=== PATIENT | male | born 1970 | race Caucasian/White ===

== ENCOUNTER 2021-03-20 09:26 | Emergency (ER) | payer OTHER, SELFPAY ==
[2021-03-20 09:27] VITALS: BP 132/84; PULSE 90; RESP 26; TEMP 37.6; O2SAT 96; BMI 29.7
--- NOTE | 2021-03-20 09:52 | RAD_ITS ---
STUDY: X-RAY CHEST REASON FOR EXAM: Male, 50 years old. COUGH TECHNIQUE: Single AP portable view of the chest. COMPARISON: None. FINDINGS: The lungs are clear and expanded. There is no demonstrated pleural abnormality. Normal size heart. Normal mediastinum and [place]. Normal visualized pulmonary arteries. Normal visualized aortic arch and descending thoracic aorta. Normal visualized thoracic spine. Normal visualized ribs, clavicles, and shoulders. There is no demonstrated abnormality of the visualized soft tissue structures of the upper abdomen. RAD/Chest 1 View (Portable) IMPRESSION: Normal x-ray examination of the chest. Electronically Signed: Murphy Grace MD at 10:54 EST Tel , Service support ,
--- NOTE | 2021-03-20 09:52 | EKG12_ITS ---
Test Reason : SYNCOPE Blood Pressure : / mmHG Vent. Rate : 092 BPM Atrial Rate : 092 BPM P-R Int : 170 ms QRS Dur : 142 ms QT Int : 376 ms P-R-T Axes : 043 064 009 degrees QTc Int : 464 ms Normal sinus rhythm Right bundle branch block Abnormal ECG Confirmed by OPHELIA LANDERS, CHERRIE ([id number]), make up editor KULWINDER JERONIMO ([id number]) on 03/23/2021 10:26:34 AM Referred By: PATI Confirmed By:CHERRIE JACINTO MD
[2021-03-20 10:07] LABS: Absolute Lymphocyte Count 0.64 X10^3/uL (0.83-4.51); Absolute Neutrophil Count 6.3 X10^3/uL (2.0-7.7); Basophil# 0.01 X10^3/uL; Basophil% 0.1 % (0-1); Eosinophil# 0.04 X10^3/uL; Eosinophils% 0.5 % (0-5); Hematocrit 48.3 % (40-54); Lymphocyte # 0.64 X10^3/ul (0.83-4.51); Lymphocyte % 8.2 % (19-41); Mean Corp Hgb Conc 33.1 g/dL (32-36); Mean Corpuscular Hgb 29.4 pg (27.0-32.0); Mean Corpuscular Volume 88.8 fL (80-94); Mean Platelet Vol. 8.8 fl (6.2-12.0); Monocyte% 10.2 % (0-10); NRBC Flagged by Analyzer 0 % (0-5); Neutrophil # 6.32 X10^3/uL (2.7-7.7); Neutrophil % 80.5 % (47-70); POSITIVE MORPHOLOGY YES; Platelet Count 190 K/mm3 (150-450); RBC Distribution Width CV 13.1 % (11.6-14.6); RBC Distribution Width SD 42.6 fl (35.1-43.9); Red Blood Count 5.44 M/mm3 (4.6-6.2); White Blood Count 7.9 K/mm3 (4.4-11.0)
[2021-03-20 10:09] LABS: Differential Indicated SCAN CRITERIA MET
[2021-03-20 10:13] LABS: Anion Gap 7 (5-15); BUN 14 mg/dL (7-18); BUN/Creat Ratio 11.2 RATIO (10-20); Calcium,Total 8.7 mg/dL (8.5-10.1); Chloride 103 mmol/L (98-107); Creatinine, Serum 1.25 mg/dL (0.70-1.30); EST Glomerular Filtration Rate 65 mL/min (>60); Est Glom Filt Rate - Afr Amer 78 mL/min (>60); Estimated Creatinine Clearance 63.09 ml/min; Glucose 126 mg/dL (74-106); Potassium 4.2 mmol/L (3.5-5.1); Sodium Level 135 mmol/L (136-145)
--- NOTE | 2021-03-20 10:16 | EX.ED.DYSGE1 ---
HPI History of Present Illness Chief Complaint: Syncope Informant: patient Onset/Context/Timing Onset: Hours (1) Context: Sudden Onset Timing: Intermittent and Lasts (Approximately 2 minutes) Quality: Sweaty Location: Generalized Worsened by: Nothing Relieved by: Nothing Narrative Narrative: Patient presents with a syncopal episode that occurred this morning. Patient states he had a recent positive COVID-19 test that he took at home. Patient states that he got up to go to the bathroom this morning and when he was walking back he felt like he was going to pass out. Patient states he laid down on the floor and passed out. states patient was out for approximately 2 minutes. She states this is longer than his previous syncopal episodes. Patient admits to a recent cough and sore throat. Patient denies any chest pain palpitations. Patient states he did break into a sweat prior to passing out. [facility] Medical History (Updated 03/20/21 @ 11:[address] Mike Rodney DO) GERD (gastroesophageal reflux disease) Hernia Home Medications pantoprazole 40 mg PO DAILY 03/20/21 [History Last Taken Unknown] Allergy/AdvReac Type Severity Reaction Status Date / Time codeine AdvReac Other Verified 03/20/21 09:33 Surgical History (Updated 03/20/21 @ 10:[address] Mike Rodney DO) History of esophageal surgery Hx of umbilical hernia repair Social History Smoking Status: Never smoker ROS ROS ED Constitutional Constitutional ED: Denies chills or fever(s) Eyes Eyes: Denies blurry vision or change in vision ENT ENT ED: Reports sore throat; Denies rhinorrhea Cardiovascular Cardiovascular: Denies chest pain or palpitations Respiratory/Chest Respiratory/Chest: Reports cough; Denies dyspnea Gastrointestinal Gastrointestinal: Denies nausea or vomiting Genitourinary Genitourinary ED: Denies dysuria or hematuria Musculoskeletal Musculoskeletal: Denies back pain or neck pain Integumentary Denies abscess or rash Neurologic Neurologic: Reports headache(s); Denies weakness Allergic/Immunologic Allergic/Immunologic ED: Denies mouth swelling or urticaria EXAM Physical Exam Const Vital Signs: 03/20/21 09:27 03/20/21 09:34 Temperature 99.6 F H Temperature Source Temporal Pulse Rate 90 Respiratory Rate 26 H Respiratory Effort Normal Non-Labored Respiratory Pattern Normal Blood Pressure 132/84 H Blood Pressure Mean 100 Pulse Ox 96 Oxygen Delivery Method Room Air Positive well nourished and well developed General Appearance ED: well developed HEENT Reports moist mucous membranes Neck supple and no JVD Resp normal respiratory effort and clear to auscultation bilaterally Cardio regular rate, regular rhythm and no murmurs GI normal to inspection, nondistended, normoactive bowel sounds and non-tender Palpation: soft Extremity normal to inspection General Extremety ED: Negative for edema or tenderness General Extremity: Negative for edema Neuro oriented x3, CN's II-XII intact bilaterally and no sensory deficits noted Sensorium / Orientation: alert Motor Exam: strength 5/5 throughout Psych mental status grossly normal Skin no rashes or lesions noted MDM MDM MDM Narrative Medical decision making narrative: EKG was obtained. On my interpretation, it showed a normal sinus rhythm with a rate of 92. NC interval and QTc intervals were normal. There is a right bundle branch block pattern noted. [place] was normal. There are no acute ST or T wave changes. CBC and basic metabolic profile were obtained and were within normal limits. Portable 1 view chest x-ray was obtained. On my interpretation, lung pleitez are clear. There is normal cardiac silhouette. Bony thorax is normal. There is no acute process noted. Radiologist also interpreted the x-ray and agrees. COVID-19 rapid antigen was obtained and was positive. Patient is feeling better on reevaluation. Patient was instructed to continue drinking fluids. Patient was instructed to follow-up with his primary care physician in 3 to 5 days. Patient was instructed to follow-up for monoclonal antibody infusion. Patient understood and was agreeable with the plan. All questions were answered. Lab Data Attestation: I reviewed the patient's lab results. Labs: Laboratory Results - last 24 hr 03/20/21 03/20/21 09:42 09:42 WBC 7.9 RBC 5.44 Hgb 16.0 Hct 48.3 MCV 88.8 MCH 29.4 MCHC 33.1 RDW Std Deviation 42.6 RDW Coeff of Wilman 13.1 Plt Count 190 MPV 8.8 Immature Gran % (Auto) 0.500 Neut % (Auto) 80.5 H Lymph % (Auto) 8.2 L [place] % (Auto) 10.2 H Eos % (Auto) 0.5 Baso % (Auto) 0.1 Absolute Neuts (auto) 6.3 Absolute Lymphs (auto) 0.64 L Nucleated RBC % 0 Sodium 135 L Potassium 4.2 Chloride 103 Carbon Dioxide 25.0 Anion Gap 7 BUN 14 Creatinine 1.25 Estim Creat Clear Calc 63.09 Est GFR (MDRD) Af Amer 78 Est GFR (MDRD) Non-Af 65 BUN/Creatinine Ratio 11.2 Glucose 126 H Calcium 8.7 Radiography Chest X-Ray - ED: 1 View, Read by ED Physician, Read by Radiologist and Normal Diagnostic Testing: Clinical Impression(s) from Imaging Studies Chest X-Ray 03/20/21 09:52 IMPRESSION: Normal x-ray examination of the chest. Electronically Signed: Murphy Grace MD at 10:54 EST Tel , Service support , EKG Initial EKG: Attestation: I personally reviewed and interpreted this EKG as follows: Interpretation: Sinus Rhythm (92), No Acute Injury Pattern and RBBB Prior EKG tracings: not available for review Discharge Plan Triage Chief Complaint: Syncope ED Provider: Mike Rodney Dx/Rx/DC Orders Clinical Impression: Syncope and collapse Instructions: ED Fainting, Uncertain Cause Prescriptions: No Action pantoprazole 40 mg tablet,delayed release (DR/EC) 40 mg PO DAILY RF: 0 Primary Care Provider: Sonia Gonzales Referrals: Doctor,Your [STAFF PHYSICIAN] - 3-5 Days Disposition Disposition: Home, Self Care
[2021-03-20 11:29] VITALS: BP 138/74; PULSE 85; RESP 27; O2SAT 93
== END 2021-03-20 12:07 | disposition home or self-care (01) ==
LOC: ED 11:31
PROVIDERS: Emergency Provider Emergency Medicine; PCP Family Medicine; Visit Provider Emergency Medicine
DX: R55 Syncope and collapse (principal); U07.1 COVID-19; I45.10 Unspecified right bundle-branch block; K21.9 Gastro-esophageal reflux disease without esophagitis; Z79.899 Other long term (current) drug therapy
CPT/HCPCS: 71045; 80048; 85025; 87426; 93005; 99285; A4216

== ENCOUNTER 2023-11-25 22:23 | Observation (INO) | payer OTHER, SELFPAY ==
[2023-11-25 22:24] VITALS: BP 173/94; PULSE 96; RESP 15; TEMP 36.4; O2SAT 97; BMI 29.8
--- NOTE | 2023-11-25 23:36 | CT_ITS ---
EXAM: CT ABDOMEN AND PELVIS WITH INTRAVENOUS CONTRAST CLINICAL INDICATION: ruq pain TECHNIQUE: Helically acquired images were obtained of the abdomen and pelvis with intravenous contrast. CTDIvol = ( 12.38 ) mGy, DLP = ( 801.67 ) mGycm This CT exam was performed using one or more of the following dose reduction techniques: automated exposure control, adjustment of the mA and/or kV according to patient size, and/or use of iterative reconstruction technique. CONTRAST: IV 100mL Isovue-370 COMPARISON: No relevant prior studies available. FINDINGS: LOWER THORAX: Unremarkable. Lung bases are clear. No cardiomegaly. No significant pericardial effusion. ABDOMEN: LIVER: Hepatic steatosis suggested. GALLBLADDER AND BILE DUCTS: Distended gallbladder. Cholelithiasis. No wall thickening or surrounding fluid or inflammation. No intra- or extrahepatic biliary ductal dilation. PANCREAS: Unremarkable. No focal cystic or solid mass. SPLEEN: Unremarkable. Normal size without focal cystic or solid mass. ADRENALS: Unremarkable. No nodules. KIDNEYS AND URETERS: Unremarkable. Normal renal size and position. No hydronephrosis. STOMACH AND BOWEL: Unremarkable. No stomach or bowel distention. No focal inflammatory change. PELVIS: APPENDIX: No evidence of acute appendicitis. BLADDER: Decompressed appearance of the bladder. REPRODUCTIVE: Unremarkable as visualized. No mass. ABDOMEN and PELVIS: INTRAPERITONEAL SPACE: Unremarkable. No ascites or other fluid collection. No free air. 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 No suspicious lytic or sclerotic lesions of bone. SOFT TISSUES: Small fat-containing inguinal hernias bilaterally. VASCULATURE: Unremarkable. Abdominal aorta is non-dilated. LYMPH NODES: Unremarkable. No enlarged lymph nodes. CT/Abdomen/Pelvis W IV Cont ONLY IMPRESSION: 1. Cholelithiasis and gallbladder distention without acute cholecystitis. 2. No acute or inflammatory disease or bowel obstruction. Electronically Signed: Eren Pro MD at 0:54 EDT ,
--- NOTE | 2023-11-25 23:37 | ED.VIS.GI ---
HPI HPI - GI History of Present Illness Chief Complaint: Abd Pain Narrative Narrative: 53-year-old male past medical history of remote surgery on his esophagus as an infant. He states it was not attached to the rest of his got, presents with right upper quadrant abdominal pain and nausea. He does have history of reflux. He does take Melvin Proehl daily. He states has been acting up all week since mid week of last week, over the last 5 or 6 days. Today, got worse. He has a sharp stabbing pain in the right upper quadrant. Food does not necessarily make it worse. He complains of a burning sensation in the epigastrium to right upper quadrant as well. He is mildly nauseated but has not vomited. No exacerbating or alleviating factors. He denies other intra-abdominal surgeries. [facility] Medical History Hernia GERD (gastroesophageal reflux disease) Home Medications ?Medication ?Instructions ?Recorded ?Last Taken ?Type pantoprazole 40 mg tablet,delayed 40 mg PO DAILY 03/20/21 Unknown History release Allergy/AdvReac Type Severity Reaction Status Date / Time codeine AdvReac Other Verified 11/25/23 22:26 Surgical History History of esophageal surgery Hx of umbilical hernia repair Social History Smoking Status: Never smoker ROS ROS ED ROS Narrative Constitutional: No fever, no chills. HEENT: No sore throat. No neck pain. No loss of vision. No rhinorrhea. Cardiovascular: No chest pain. No palpitations. No pedal edema. Respiratory: No cough, no shortness of breath. Abdominal: Epigastric to right upper quadrant abdominal pain. Positive nausea. No vomiting. No problems with bowel movements. Genitourinary: No dysuria. No hematuria. Musculoskeletal: No myalgias. No arthralgias. Neurologic: No headaches. No dizziness. No lightheadedness. Skin: No rash. No change in color. Psychiatric: No depression. No anxiety. EXAM Physical Exam Narrative Exam Narrative: Afebrile. Vital signs noted. Regular rate and rhythm. Lungs clear to auscultation bilaterally. Positive ventral hernia, reducible. Abdomen soft with mild tenderness to palpation in right upper quadrant. Positive Gonzalez sign. Mild tenderness in epigastrium. Neurological examination is nonfocal, nonlateralizing. Const Vital Signs: 11/25/23 22:24 11/26/23 00:23 Temperature 97.5 F L Temperature Source Temporal Pulse Rate 96 78 Respiratory Rate 15 Blood Pressure 173/94 H 172/96 H Blood Pressure Mean 120 121 Pulse Ox 97 98 Oxygen Delivery Method Room Air Room Air MDM MDM MDM Narrative Medical decision making narrative: Differential diagnosis includes but not limited to pancreatitis versus cholecystitis versus choledocholithiasis versus GERD versus peptic ulcer disease. I have low suspicion for bowel obstruction because history and physical does not support this. He was administered morphine and ondansetron and a bolus of normal saline. CBC, CMP, lipase, and CT imaging will be obtained as ultrasound is not currently available. I reviewed his laboratory work and he has slightly elevated white count of 11.1, hemoglobin normal at 16.5, platelet count normal at 252. Sodium is normal at 138, potassium 3.9, BUN of 13 and creatinine 1.07, glucose elevated 122 with a normal anion gap of 6. AST normal at 15 with ALT 28 and alk phos 82. Total bilirubin slightly elevated at 1.20. Lipase is normal at 34. Urinalysis obtained and reviewed and is negative for infection. I reviewed the radiology report of the CT of the abdomen pelvis and while there is a distended gallbladder with gallstones, there is no evidence of pericholecystic fluid. After morphine and Zofran, repeat exam was performed and the patient is still having pain and tenderness in the right upper quadrant. With concern for developing cola cystitis, I did discuss the patient with Dr. Garcia with general surgery. He will assign the patient to observation and Zosyn was started. Repeat examination shows patient declining further analgesics at this time. Ultrasound will be obtained in the morning by Dr. Garcia. Disposition is assigned observation. Patient is in stable condition. History & Record Review Discussion w/independent historian: Patient Additional record(s) reviewed:: Prior ED visit (Noncontributory to current chief complaint) Lab Data Attestation: I reviewed the patient's lab results. Labs: Laboratory Results - last 24 hr 11/25/23 11/25/23 23:40 23:45 WBC 11.1 H RBC 5.65 Hgb 16.5 Hct 49.7 MCV 88.0 MCH 29.2 MCHC 33.2 RDW Std Deviation 41.1 RDW Coeff of Wilman 12.8 Plt Count 252 MPV 8.6 Immature Gran % (Auto) 0.400 Neut % (Auto) 68.5 Lymph % (Auto) 18.6 L Daniels % (Auto) 9.9 Eos % (Auto) 1.8 Baso % (Auto) 0.8 Absolute Neuts (auto) 7.6 Absolute Lymphs (auto) 2.07 Nucleated RBC % 0 Sodium 138 Potassium 3.9 Chloride 103 Carbon Dioxide 29.0 Anion Gap 6 BUN 13 Creatinine 1.07 Estim Creat Clear Calc 80.20 Est GFR (MDRD) Af Amer 92 Est GFR (MDRD) Non-Af 76 BUN/Creatinine Ratio 12.1 Glucose 122 H Calcium 9.0 Total Bilirubin 1.20 H AST 15 ALT 28 Alkaline Phosphatase 82 Total Protein 7.5 Albumin 3.7 Globulin 3.8 Albumin/Globulin Ratio 1.0 Lipase 34 Urine Color Yellow Urine Clarity Clear Urine pH 7.0 Ur Specific [place] 1.005 Urine Protein Negative Urine Glucose (UA) Normal Urine Ketones Negative Urine Occult Blood 50 H Urine Nitrite Negative Urine Bilirubin Negative Urine Urobilinogen Normal Ur Leukocyte Esterase Negative Urine RBC 5-10 SEEN Urine WBC 0 SEEN Ur Squamous Epith Cells 0-5 SEEN Urine Bacteria 0 SEEN Urine Mucus 0 SEEN Radiography Diagnostic Testing: Clinical Impression(s) from Imaging Studies Abdomen/Pelvis CT 11/25/23 23:36 IMPRESSION: 1. Cholelithiasis and gallbladder distention without acute cholecystitis. 2. No acute or inflammatory disease or bowel obstruction. Electronically Signed: Eren Pro MD at 0:54 EDT , Management Discussion w/another healthcare provider: Economics Lecturer (Dr. Garcia, general surgery) Discharge Plan Dx/Rx/DC Orders Clinical Impression: Abdominal pain, RUQ, Cholelithiasis, Nausea Disposition Disposition: Acute Care Hospital [facility]
[2023-11-25] MEDS: 0.9% Normal Saline (1000mL) 1,000 ML 999 ML IV (23:44)
[2023-11-25] MEDS: Ondansetron 4 MG/2 ML Vial IV (23:45)
[2023-11-25] MEDS: Morphine 4 MG/ML Syringe IV (23:45)
[2023-11-25 23:48] LABS: Bacteria 0 SEEN /hpf (None Seen); Mucous, Urine 0 SEEN /hpf (<or=2+); White Blood Cells 0 SEEN /hpf (0-5)
[2023-11-25 23:49] LABS: Absolute Lymphocyte Count 2.07 X10^3/uL (0.83-4.51); Absolute Neutrophil Count 7.6 X10^3/uL (2.0-7.7); Basophil# 0.09 X10^3/uL; Basophil% 0.8 % (0-1); Eosinophils% 1.8 % (0-5); Hematocrit 49.7 % (40-54); Hemoglobin 16.5 g/dL (13.0-16.5); Lymphocyte # 2.07 X10^3/ul (0.83-4.51); Lymphocyte % 18.6 % (19-41); Mean Corp Hgb Conc 33.2 g/dL (32-36); Mean Corpuscular Hgb 29.2 pg (27.0-32.0); Mean Platelet Vol. 8.6 fl (6.2-12.0); Monocyte% 9.9 % (0-10); NRBC Flagged by Analyzer 0 % (0-5); Neutrophil # 7.64 X10^3/uL (2.7-7.7); Neutrophil % 68.5 % (47-70); Platelet Count 252 K/mm3 (150-450); RBC Distribution Width CV 12.8 % (11.6-14.6); RBC Distribution Width SD 41.1 fl (35.1-43.9); Red Blood Count 5.65 M/mm3 (4.6-6.2); White Blood Count 11.1 K/mm3 (4.4-11.0)
[2023-11-25 23:51] LABS: Color, Urine Yellow (Yellow); Glucose, Dipstick Normal (Normal); Ketone-Dipstick Negative (Negative); Leukocyte Esterase-Dipstick Negative /ul (Negative); Nitrite-Dipstick Negative (Negative); Occult Blood-Urine 50 /ul (Negative); Protein-Dipstick Negative (Negative); Specific Gravity, Urine 1.005 (1.002-1.030); Urine Bilirubin Dipstick Negative (Negative); Urine Clarity Clear (Clear); Urine Urobilinogen Normal (Normal)
[2023-11-25 23:59] LABS: Red Blood Cells-Urine 5-10 SEEN /hpf (0-5); Squamous Epithelial Cells - UA 0-5 SEEN /hpf (0-5)
[2023-11-26] VITALS (19 sets, daily range): BP systolic 125–178; BP diastolic 70–96; PULSE 70–89; RESP 15–18; TEMP 36.4–37.4; O2SAT 94–100; BMI 29.9
--- NOTE | 2023-11-26 | GALL_PTH ---
PATIENT: JOSEPHINE ADAMS LOC: [id number] U#:[id number] AGE/SX: 53/M ROOM: IN313 RE11/26/[address]: Dr. Herrera Garcia MD : 1970 BED: 1 DIS: 11/27/2023 SPEC #: [id number] RECD: 11/27/23 10:23 STATUS: TERI LAURAParmjit #: [id number] MIHIR: 11/26/23 00:[address]: Herrera Garcia DEPT: SURGICAL PATHOLOGY RECD BY: Ridge Beltran ENTERED: 11/27/23 10:23 SP TYPE: JOSÉ ESPOSITO DR: Sonia Gonzales PA-C Tissues: Gallbladder, NOS Procedures: Surgery Specimen Level III HEADER OPERATION: Laparoscopic cholecystectomy PRE-OP DIAGNOSIS: Acute cholelithiasis TISSUE SUBMITTED: Gallbladder MICROSCOPIC DIAGNOSIS Gallbladder, cholecystectomy: Chronic and acute cholecystitis and cholelithiasis. AM/mr 11/28/2023 MICROSCOPIC DESCRIPTION Slides are reviewed. GROSS DESCRIPTION Received is one container labeled with the patient's name and designated gallbladder. The specimen consists of a gallbladder measuring 10.5 cm in length and up to 3.0 cm in diameter. The external surface is pink-calabrese, smooth and glistening for the most part. Focally it is granular, hemorrhagic and contains cautery artifact. The gallbladder contains small amount of hemorrhagic mucoid bile and two yellowish-brown stones ovoid to multifaced measuring in aggregate 1.5 and 3.0cm in greatest dimension. The mucosa is bile-stained and without any mass lesions. The gallbladder wall measures up to 0.3 cm in thickness. Clinic Md Associate sections from the gallbladder and the cystic duct are submitted in one cassette. / SJ: 11/27/2023 TC:2 CPT: 88641
[2023-11-26 00:12] LABS: AST(SGOT) 15 U/L (15-37); Alanine Aminotransfer ALT/SGPT 28 U/L (16-61); Albumin, Serum 3.7 g/dL (3.2-5.0); Alkaline Phosphatase 82 U/L (45-117); Anion Gap 6 (5-15); BUN 13 mg/dL (7-18); BUN/Creat Ratio 12.1 RATIO (10-20); Chloride 103 mmol/L (98-107); Creatinine, Serum 1.07 mg/dL (0.70-1.30); EST Glomerular Filtration Rate 76 mL/min (>60); Est Glom Filt Rate - Afr Amer 92 mL/min (>60); Globulin 3.8 g/dL (2.2-4.2); Glucose 122 mg/dL (74-106); Lipase 34 U/L (13-75); Potassium 3.9 mmol/L (3.5-5.1); Protein, Total 7.5 g/dL (6.4-8.2); Sodium Level 138 mmol/L (136-145)
[2023-11-26] MEDS: Piperacil/Tazobactam 3.375 GM in 0.9% Normal Saline (50mL MB+) 50 ML IV ×4 (01:54→21:46)
[2023-11-26] MEDS: 0.9% Normal Saline (1000mL) 1,000 ML 100 ML IV (02:00)
[2023-11-26] MEDS: Morphine 2 MG/ML Syringe IV (03:03)
--- NOTE | 2023-11-26 05:55 | US_ITS ---
INDICATION: RUQ pain EXAMINATION: Ultrasound US Abdomen Limited (quadrant) TECHNIQUE: Rodriges scale and color doppler imaging was performed of the right upper quadrant. COMPARISON: CT scan of the abdomen and pelvis of 11/25/2023 FINDINGS: LIVER: The liver is enlarged measuring about 21 cm in length and is echogenic in texture. The portal vein is patent with normal hepatopedal flow. No focal hepatic lesion. There is no free fluid. GALLBLADDER AND BILIARY TREE: Distended gallbladder with multiple gallstones and sludge in the gallbladder. There is mild pericholecystic fluid or gallbladder wall measuring about 7 mm. The proximal common bile duct measures 3 mm, which is within normal limits for the patient''s age. Sonographic Gonzalez''s sign: Positive. PANCREAS: No focal abnormality is demonstrated in the pancreas. No pancreatic ductal dilatation. Right kidney: The right kidney measures 10.6 cm in length. The renal cortex measures 1.8 cm. No evidence of hydronephrosis US/Gallbladder IMPRESSION: 1. Gallstones with thickening of the gallbladder wall and pericholecystic fluid concerning for acute cholecystitis. 2. Hepatomegaly and hepatic steatosis. Electronically Signed: Torsten Larkin MD at 9:42 EDT ,
[2023-11-26 06:07] LABS: Absolute Lymphocyte Count 2.33 X10^3/uL (0.83-4.51); Basophil# 0.04 X10^3/uL; Basophil% 0.4 % (0-1); Eosinophil# 0.21 X10^3/uL; Eosinophils% 2.2 % (0-5); Hematocrit 45.4 % (40-54); Hemoglobin 15.1 g/dL (13.0-16.5); Lymphocyte # 2.33 X10^3/ul (0.83-4.51); Lymphocyte % 24.3 % (19-41); Mean Corp Hgb Conc 33.3 g/dL (32-36); Mean Corpuscular Hgb 29.3 pg (27.0-32.0); Mean Platelet Vol. 8.8 fl (6.2-12.0); Monocyte# 0.99 X10^3/uL; Monocyte% 10.3 % (0-10); NRBC Flagged by Analyzer 0 % (0-5); Neutrophil # 5.98 X10^3/uL (2.7-7.7); Neutrophil % 62.4 % (47-70); Platelet Count 222 K/mm3 (150-450); RBC Distribution Width CV 12.8 % (11.6-14.6); RBC Distribution Width SD 41.4 fl (35.1-43.9); Red Blood Count 5.16 M/mm3 (4.6-6.2); White Blood Count 9.6 K/mm3 (4.4-11.0)
[2023-11-26 06:56] LABS: AST(SGOT) 11 U/L (15-37); Alanine Aminotransfer ALT/SGPT 23 U/L (16-61); Albumin, Serum 3.1 g/dL (3.2-5.0); Alkaline Phosphatase 69 U/L (45-117); Anion Gap 7 (5-15); BUN 11 mg/dL (7-18); BUN/Creat Ratio 10.9 RATIO (10-20); Calcium,Total 8.5 mg/dL (8.5-10.1); Chloride 106 mmol/L (98-107); Creatinine, Serum 1.01 mg/dL (0.70-1.30); EST Glomerular Filtration Rate 82 mL/min (>60); Est Glom Filt Rate - Afr Amer 99 mL/min (>60); Estimated Creatinine Clearance 85.15 ml/min; Globulin 3.2 g/dL (2.2-4.2); Glucose 104 mg/dL (74-106); Potassium 3.7 mmol/L (3.5-5.1); Protein, Total 6.3 g/dL (6.4-8.2); Sodium Level 140 mmol/L (136-145)
--- NOTE | 2023-11-26 08:56 | PCM.HP.STD ---
HPI - General General Date of Admission: 11/26/23 HPI Narrative JOSEPHINE ADAMS, is a 53 M who presents with abdominal pain. The patient reports pain in the right upper quadrant that started a few days ago and he thought it was reflux and it went away and he said last night it started and did not go away. He denies vomiting or fevers or chills. [facility] Medical History Hernia GERD (gastroesophageal reflux disease) Home Medications ?Medication ?Instructions ?Recorded ?Last Taken ?Type pantoprazole 40 mg tablet,delayed 40 mg PO DAILY 03/20/21 Unknown History release Allergy/AdvReac Type Severity Reaction Status Date / Time codeine AdvReac Other Verified 11/25/23 22:26 Surgical History History of esophageal surgery Hx of umbilical hernia repair Social History Smoking Status: Never smoker ROS Constitutional Constitutional: Denies anorexia, chills, fatigue or fever(s) Eyes Eyes: Denies blurry vision ENT HEENT: Denies abnormal hearing Respiratory/Chest Respiratory/Chest: Denies cough or dyspnea Gastrointestinal Gastrointestinal: Reports abdominal pain and nausea; Denies diarrhea, dysphagia or vomiting Genitourinary Genitourinary: Denies change in urinary stream Musculoskeletal Musculoskeletal: Denies abnormal gait Integumentary Integumentary: Denies jaundice or new lesions Neurologic Neurologic: Denies abnormal gait Psychiatric Psychiatric: Denies anxiety Endocrine Endocrinology: Denies flushing Hematologic/Lymphatic Hematologic/Lymphatic: Denies easy bleeding Vital Signs Vital Signs Vital Signs: 11/25/23 22:24 11/26/23 00:23 11/26/23 01:50 Temperature 97.5 F L 97.5 F L Temperature Source Temporal Pulse Rate 96 78 75 Respiratory Rate 15 18 Respiratory Effort Respiratory Depth Respiratory Pattern Blood Pressure 173/94 H 172/96 H 147/75 H Blood Pressure Mean 120 121 99 Blood Pressure Source Blood Pressure Position Blood Pressure Location Pulse Ox 97 98 98 Oxygen Delivery Method Room Air Room Air 11/26/23 01:52 11/26/23 02:32 11/26/23 02:54 Temperature 98.4 F 98.5 F Temperature Source Oral Oral Pulse Rate 70 74 Respiratory Rate 16 15 15 Respiratory Effort Normal Non-Labored Respiratory Depth Normal Respiratory Pattern Normal Blood Pressure 147/75 H 178/93 H Blood Pressure Mean 99 121 Blood Pressure Source Monitor Blood Pressure Position Semi-Fowlers Blood Pressure Location Right Arm Pulse Ox 97 100 100 Oxygen Delivery Method Room Air Room Air Room Air 11/26/23 08:00 11/26/23 08:00 Temperature 99.4 F H Temperature Source Temporal Pulse Rate 88 Respiratory Rate 18 Respiratory Effort Normal Non-Labored Respiratory Depth Normal Respiratory Pattern Normal Blood Pressure 132/80 H Blood Pressure Mean 97 Blood Pressure Source Monitor Blood Pressure Position Semi-Fowlers Blood Pressure Location Right Arm Pulse Ox 97 100 Oxygen Delivery Method Room Air Room Air Weight Weight: 185 lb 13.595 oz Body Mass Index (BMI) 29.9 Physical Exam Const oriented x3 and no apparent distress Resp normal respiratory effort GI soft to palpation Palpation: tender RUQ and Gonzalez's sign Extremity normal to inspection Results Lab / Micro Data 11/26/23 05:46 11/26/23 05:46 Labs: Laboratory Results - last 24 hr 11/25/23 23:40: Urine Color Yellow, Urine Clarity Clear, Urine pH 7.0, Ur Specific [place] 1.005, Urine Protein Negative, Urine Glucose (UA) Normal, Urine Ketones Negative, Urine Occult Blood 50 H, Urine Nitrite Negative, Urine Bilirubin Negative, Urine Urobilinogen Normal, Ur Leukocyte Esterase Negative, Urine RBC 5-10 SEEN, Urine WBC 0 SEEN, Ur Squamous Epith Cells 0-5 SEEN, Urine Bacteria 0 SEEN, Urine Mucus 0 SEEN 11/25/23 23:45: WBC 11.1 H, RBC 5.65, Hgb 16.5, Hct 49.7, MCV 88.0, MCH 29.2, MCHC 33.2, RDW Std Deviation 41.1, RDW Coeff of Wilman 12.8, Plt Count 252, MPV 8.6, Immature Gran % (Auto) 0.400, Neut % (Auto) 68.5, Lymph % (Auto) 18.6 L, [place] % (Auto) 9.9, Eos % (Auto) 1.8, Baso % (Auto) 0.8, Absolute Neuts (auto) 7.6, Absolute Lymphs (auto) 2.07, Nucleated RBC % 0, Sodium 138, Potassium 3.9, Chloride 103, Carbon Dioxide 29.0, Anion Gap 6, BUN 13, Creatinine 1.07, Estim Creat Clear Calc 80.20, Est GFR (MDRD) Af Amer 92, Est GFR (MDRD) Non-Af 76, BUN/Creatinine Ratio 12.1, Glucose 122 H, Calcium 9.0, Total Bilirubin 1.20 H, AST 15, ALT 28, Alkaline Phosphatase 82, Total Protein 7.5, Albumin 3.7, Globulin 3.8, Albumin/Globulin Ratio 1.0, Lipase 34 11/26/23 05:46: WBC 9.6, RBC 5.16, Hgb 15.1, Hct 45.4, MCV 88.0, MCH 29.3, MCHC 33.3, RDW Std Deviation 41.4, RDW Coeff of Wilman 12.8, Plt Count 222, MPV 8.8, Immature Gran % (Auto) 0.400, Neut % (Auto) 62.4, Lymph % (Auto) 24.3, [place] % (Auto) 10.3 H, Eos % (Auto) 2.2, Baso % (Auto) 0.4, Absolute Neuts (auto) 6.0, Absolute Lymphs (auto) 2.33, Nucleated RBC % 0, Sodium 140, Potassium 3.7, Chloride 106, Carbon Dioxide 27.0, Anion Gap 7, BUN 11, Creatinine 1.01, Estim Creat Clear Calc 85.15, Est GFR (MDRD) Af Amer 99, Est GFR (MDRD) Non-Af 82, BUN/Creatinine Ratio 10.9, Glucose 104, Calcium 8.5, Total Bilirubin 1.60 H, AST 11 L, ALT 23, Alkaline Phosphatase 69, Total Protein 6.3 L, Albumin 3.1 L, Globulin 3.2, Albumin/Globulin Ratio 1.0 Imaging Radiology Impression Abdomen/Pelvis CT 11/25/23 23:36 IMPRESSION: 1. Cholelithiasis and gallbladder distention without acute cholecystitis. 2. No acute or inflammatory disease or bowel obstruction. Electronically Signed: Eren Pro MD at 0:54 EDT , Assessment & Plan Assessment/Plan (1) Acute cholecystitis: PLAN: The patient has a what appears to be acute cholecystitis by history and his CT scan showed distended gallbladder with 2 large gallstones. Gallbladder ultrasound is being performed this morning as long as it supports the diagnosis of acute cholecystitis I will take him for laparoscopic cholecystectomy this afternoon. I discussed the procedure in detail with the patient. I discussed the risks, benefits, and alternatives of the procedure. I discussed the risks including but not limited to bleeding, infection, injury to surrounding organs such as the liver, bile duct, bowels. I did discuss the possibility of having to convert to an open procedure as well as the possibility that if any injuries occurred this may necessitate further surgery at a tertiary care center. Herrera Garcia MD Pager: [facility] [address] [place] [address] [address] [place] [address] Office:
--- NOTE | 2023-11-26 09:25 | EKG12_ITS ---
Test Reason : PRE OP Blood Pressure : / mmHG Vent. Rate : 080 BPM Atrial Rate : 080 BPM P-R Int : 180 ms QRS Dur : 146 ms QT Int : 378 ms P-R-T Axes : 039 035 022 degrees QTc Int : 435 ms Normal sinus rhythm Right bundle branch block Abnormal ECG When compared with ECG of 20-MAR-2021 10:06, No significant change was found Confirmed by AILYN LANDERS, CHRISTIANO ([id number]), photograph editor KULWINDER JERONIMO ([id number]) on 11/27/2023 6:17:14 AM Referred By: [email or web address] Confirmed By:CHRISTIANO ROBERTSON MD
[2023-11-26] MEDS: Lactated Ringers 1,000 ML 15 ML IV ×2 (13:49→17:31)
--- NOTE | 2023-11-26 14:12 | PRE.ANES_ITS ---
ASA Classification* ASA Classification ASA Classification: 2 Assessment & Plan Anesthesia* Anesthesia Assessment Anesthesia Assessment: Discussed sedation and/or anesthesia options, risks, benefits, and alternatives with patient/parents/legal guardian/POA. Questions invited. The patient/parents/legal guardian/POA seems to understand and agrees to proceed with anesthesia plan. Reviewed the physical assessment, medical history, allergy history and patient home medications list prior to surgery/procedure/anesthetic and documented any changes. Performed airway and anesthesia risk assessments. Anesthesia Type Anesthesia Type: General Anesthesia Focused Assessment* Temperature: 99.4 F Pulse Rate: 88 Blood Pressure: 132/80 Respiratory Rate: 18 Pulse Ox: 100 Airway Assessment Mouth opens: >3 cm Mallampati Score: II Focused Labs Anesthesia Preop lab: CBC WBC 9.6 K/mm3 (4.4-11.0) 11/26/23 05:46 RBC 5.16 M/mm3 (4.6-6.2) 11/26/23 05:46 Hgb 15.1 g/dL (13.0-16.5) 11/26/23 05:46 Hct 45.4 % (40-54) 11/26/23 05:46 Plt Count 222 K/mm3 (150-450) 11/26/23 05:46 CHEMISTRY Potassium 3.7 mmol/L (3.5-5.1) 11/26/23 05:46 Sodium 140 mmol/L (136-145) 11/26/23 05:46 BUN 11 mg/dL (7-18) 11/26/23 05:46 Creatinine 1.01 mg/dL (0.70-1.30) 11/26/23 05:46 Glucose 104 mg/dL (74-106) 11/26/23 05:46 COAG Pre-Assessment Diagnosis/Proposed Procedure Planned Operative Procedure(s): laproscopic choly Anesthesia History Anesthesia History - sap director: Anesthesia History - sap director Hx Hospitalization Any Problems With Anesthesia No 11/26/23 03:52 Cholinesterase deficiency No 11/26/23 03:52 You/Your Family Experience No 11/26/23 03:52 fever (hyperthermia) with Relationship Recent Exposure to Contagious No 11/26/23 03:52 Disease Does patient have nerve No 11/26/23 03:52 stimulator Patient instructed to have No 11/26/23 03:52 device shut off --Does patient have Pacemaker or ICD? When Was Last Pacemaker Check QUESTION #4 FULL TEXT: You/Your Family Experience fever (hyperthermia) with Anesthesia Last Oral Intake Last Oral intake: Last Oral Intake NPO since Meds taken in AM with sips of water? Meds patient instructed to take am of surgery PONV PONV - sap director: PONV - sap director Female HX of Motion Sickness HX of N/V After Surgery Non-Smoker Duration of Surgery greater than 60 minutes Number of Risk Factors PONV Score Height & Weight Height & Weight: Anesthesia: Height & Weight Height 5 ft 6 in 11/26/23 02:32 Weight: 84.3 kg 11/26/23 02:32 Body Mass Index (BMI) 29.9 11/26/23 02:32 Respiratory Assessment Respiratory Assessment - sap director: Respiratory Tract Infection Hx - sap director Hx Respiratory Tract Infection No 11/26/23 03:52 STOP Sleep Apnea STOP Sleep Apnea - sap director: STOP Sleep Apnea - sap director Hx Hypertension No 11/26/23 02:32 Hx Sleep Apnea No 11/26/23 02:32 CPAP BIPAP Do you snore loudly (louder No 11/26/23 02:32 than talking or can be heard Do you often feel tired/ No 11/26/23 02:32 fatigued/ sleepy during daytime? Has anyone observed you stop No 11/26/23 02:32 breathing during sleep? STOP Results Negative 11/26/23 02:32 QUESTION #5 FULL TEXT : Do you snore loudly (louder than talking or can be heard through closed doors)? 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 Specify any problems Hx of Preganancy in last 3 N/A 11/26/23 02:32 Months Nurse Filling Out Transfusion LSHRINER 11/26/23 02:32 & Questions: Date: 11/26/23 11/26/23 02:32 Time: 02:38 11/26/23 02:32 Patient unable to answer at this time (ie. confused, unrespo /Reproduction History /Reproductive History - sap director: /Reproductive Hx- sap director Hx Now Gestational Age (in weeks): EDC: Hx Hx Para Hx Section SAB Active Medications Active Medications: Current Medications Generic Name Dose Route Start Last Admin Trade Name Freq PRN Reason Stop Dose Admin Acetaminophen 650 mg 11/26/23 01:57 Acetaminophen 325 Mg Tablet PO Q4H PRN PRN Pain 1-10 or Fever Piperacillin Sod/Tazobactam 50 mls @ 12.5 mls/hr 11/26/23 06:30 11/26/23 11:53 Sod 3.375 gm/ Sodium Chloride IV Infused Q8 BETSY Infusion Lactated Ringer's 1,000 mls @ 15 mls/hr 11/26/23 13:45 11/26/23 13:49 IV 15 mls/hr .Q48H BETSY Administration Morphine Sulfate 2 - 4 mg 11/26/23 01:57 11/26/23 03:03 Morphine 2 Mg/Ml Syringe IV 4 mg Q2H PRN PRN Administration Pain Score 4-10 Morphine Sulfate 2 - 4 mg 11/26/23 02:09 Morphine 4 Mg/Ml Syringe IV Q2H PRN PRN Pain Score 4-10 Ondansetron HCl 4 mg 11/26/23 01:57 Ondansetron 4 Mg/2 Ml Vial IV Q6H PRN PRN NAUSEA/VOMITING Pantoprazole Sodium 40 mg 11/26/23 10:00 11/26/23 08:03 Pantoprazole Sodium 40 Mg Tablet PO Not Given DAILY BETSY Sodium Chloride 10 - 40 ml 11/26/23 01:57 0.9% Saline Lock 10 Ml Syringe IV UD PRN SALINE FLUSH Sodium Chloride 10 - 40 ml 11/26/23 01:57 0.9% Saline Lock 10 Ml Syringe IV UD PRN SALINE FLUSH Sodium Chloride 10 - 40 ml 11/26/23 03:23 0.9% Saline Lock 10 Ml Syringe IV UD PRN SALINE FLUSH PFSH Medical History Hernia GERD (gastroesophageal reflux disease) Home Medications ?Medication ?Instructions ?Recorded ?Last Taken ?Type pantoprazole 40 mg tablet,delayed 40 mg PO DAILY 03/20/21 Unknown History release Allergy/AdvReac Type Severity Reaction Status Date / Time codeine AdvReac Other Verified 11/25/23 22:26 Surgical History History of esophageal surgery Hx of umbilical hernia repair Social History Smoking Status: Never smoker Review of Systems (Anesthesia) ROS Narrative System reviewed and no additional complaints, except as documented.
--- NOTE | 2023-11-26 15:15 | RAD_ITS ---
INDICATION: MANJINDER EXAMINATION/TECHNIQUE: Images assigned to this order were provided in conjunction with a surgical procedure performed in the operating room/procedural suite. Please see operative report for details. Fluoroscopic images: 85 images of a single cine run Fluoroscopic time: 13 2nd Cumulative dose: NA, mGym2; 5.44; mGy COMPARISON: No relevant comparisons available.. FINDINGS: There is significant contrast in the RIGHT quadrant without clear visualization of the intrahepatic or extrahepatic ductal system. RAD/Cholangiogram/ O R,Initial IMPRESSION: 1. Staining of contrast in the RIGHT upper quadrant in the surgical field without clear demonstration of the intrahepatic or extrahepatic biliary tree. Electronically Signed: Murphy Bush MD at 1:06 EDT ,
[2023-11-26] MEDS: Bupiv/Epi 0.25% 30 ML Vial (15:45)
--- NOTE | 2023-11-26 15:46 | OP.PCM_ITS ---
Report of Operation Date of Procedure: 11/26/23 Pre-Operative Diagnosis: Acute cholecystitis Post-Operative Diagnosis: Acute cholecystitis Surgery/Procedure Performed:: Laparoscopic cholecystectomy Specimen's removed: Gallbladder Estimated Blood Loss (mL): 5 Description of Procedure: After obtaining informed consent patient was brought back to the operating room. General anesthesia was induced. The abdomen was prepped and draped in usual sterile fashion. A small midline incision was made superior to the umbilicus and deepened to the level of fascia. The fascia was elevated and incised. Next the peritoneum was elevated and incised in the same fashion. Finger sweep was performed and the Clemente trocar was placed into the abdomen. The balloon was inflated. The abdomen was inflated to 15 mmHg. Next a camera was introduced into the abdomen and the abdomen was inspected. Next under direct visualization three 5-mm ports were placed one subxiphoid and 2 subcostal. Next the gallb ladder was elevated and retracted toward the right shoulder. The peritoneum was stripped from the gallbladder. The infundibulum was located and retracted laterally. Next the triangle of Calot was dissected and the cystic duct and cystic artery were identified. Cholangiograms were attempted. I was unable to get any of the contrast to flow into the common duct and I had a good view of safety. I believe there may be a small stone lodged in the distal cystic duct precluding cholangiograms. Three hemolock clips were placed across the cystic duct. The cystic duct was then divided leaving 2 clips on the stump. The cystic artery was clipped and divided in the same fashion. The hook cautery was then used to take the gallbladder off of the gallbladder bed. Hemostasis was obtained. Gallbladder fossa was irrigated and no active bleeding or bile leakage was noted. Next the camera was introduced in the subxiphoid port. An Endopouch bag was placed through the umbilical port and the gallbladder was placed into it. The gallbladder was then removed through the umbilical incision. The camera was then reinserted through the umbilical port. The gallbladder fossa was inspected once more and noted to be hemostatic with no leaking bile. The abdomen was suctioned dry. The 5 mm ports were removed under direct visualization. The umbilical port was then removed and the air was removed from the abdomen. Next using an 0 Vicryl suture the umbilical fascia was closed in a [id number] fashion. The umbilical port site was irrigated local anesthetic was administered to all the incisions. All the incisions were closed with interrupted subcuticular 4-0 Monocryl sutures followed by Steri- Strips and dressings. The patient was awoken and taken to PACU in stable condition. Admit VTE Documentation VTE Mechan Device Prophylaxis: SCD's
--- NOTE | 2023-11-26 16:08 | PCM.POST.ANE ---
Anesthesia: Postop Eval I Current Vital Signs Temperature: 98.8 F Pulse Rate: 86 Blood Pressure: 129/72 Respiratory Rate: 16 Pulse Ox: 96 Oxygen Delivery Method: Room Air Assessment Airway patent: Yes Spontaneous unlabored respirations: Yes Mental status: Asleep nausea: No Vomiting: No Anesthesia Complication: No Fluid Hydration Crystalloid volume administer (ml): 900 Total IV fluid infused: 900 Progress Note Anesthesia document: Postop Eval 1 completed: Yes
--- NOTE | 2023-11-26 17:16 | PCM.POSTANE2 ---
Anesthesia Postop Eval I Sum Postop Eval Completion status Anesthesia document: Postop Eval 1 completed: Yes Anesthesia Postop Eval I Summary Anesthesia Postop Eval I Summary: Anesthesia Postop Eval I: Assessment Summary Airway patent Yes 11/26/23 16:08 [email or web address] Spontaneous unlabored Yes 11/26/23 16:08 [email or web address] respirations Mental status Asleep 11/26/23 16:08 [email or web address] nausea No 11/26/23 16:08 [email or web address] Vomiting No 11/26/23 16:08 [email or web address] Anesthesia Postop Eval I: Fluid Summary Crystalloid volume administer 900 11/26/23 16:08 [email or web address] (ml) Colloids volume administered ( ml) Blood Product volume administered (ml) Total IV fluid infused 900 11/26/23 16:08 [email or web address] Anesthesia Postop Eval I: Summary Notes Anesthesia Complication No 11/26/23 16:08 [email or web address] Anesthesia Complication Comment: Post-operative progress note Anesthesia: Postop Eval II Evaluation Mental status: Awake and Calm Pain Level: 1 nausea: No Vomiting: No
[2023-11-27 02:00] VITALS: BP 149/75; PULSE 88; RESP 18; TEMP 37.1; O2SAT 96
[2023-11-27] MEDS: Acetaminophen 325 MG Tablet 650 MG PO ×2 (02:18→05:48)
[2023-11-27] MEDS: Piperacil/Tazobactam 3.375 GM in 0.9% Normal Saline (50mL MB+) 50 ML IV (05:47)
[2023-11-27 07:22] LABS: Absolute Neutrophil Count 14.2 X10^3/uL (2.0-7.7); Basophil# 0.03 X10^3/uL; Basophil% 0.2 % (0-1); Hematocrit 45.9 % (40-54); Hemoglobin 15.2 g/dL (13.0-16.5); Lymphocyte % 6.7 % (19-41); Mean Corp Hgb Conc 33.1 g/dL (32-36); Mean Corpuscular Hgb 29.1 pg (27.0-32.0); Mean Corpuscular Volume 87.9 fL (80-94); Monocyte% 6.7 % (0-10); NRBC Flagged by Analyzer 0 % (0-5); Neutrophil # 14.22 X10^3/uL (2.7-7.7); Platelet Count 252 K/mm3 (150-450); RBC Distribution Width CV 12.7 % (11.6-14.6); RBC Distribution Width SD 41.2 fl (35.1-43.9); Red Blood Count 5.22 M/mm3 (4.6-6.2); White Blood Count 16.5 K/mm3 (4.4-11.0)
--- NOTE | 2023-11-27 07:34 | DS.PCM_ITS ---
Providers Date of Admission: 11/26/23 Primary Care Physician: Sonia Gonzales PA-C Reason For Visit: ACUTE CHOLECYSTITIS Diagnosis Discharge Diagnosis (1) Acute cholecystitis: Status: Acute Code(s): K81.0 - Acute cholecystitis Medications at Discharge Home Medications pantoprazole 40 mg tablet,delayed release 40 mg PO DAILY 03/20/21 acetaminophen 325 mg tablet 650 mg (2 x 325 mg) PO Q4H PRN PRN Pain 1-10 Or Fever #0 tabs 11/27/23 oxycodone 5 mg tablet 5 mg PO Q6H PRN pain 2 days #6 tabs 11/27/23 Hospital Course Operations cholecystecomy Summary of Care Provided Minutes Spent on Discharge: 30 Hospital Course: Patient is a 53 y/o M who presented with a 3 day history of worsening abdominal pain in the right upper quadrant. CT scan of the ab/pel was obtained demonstrating cholelithiasis and gallbladder distention. RUQ u/s was obtained demonstrating gallstones with thickening of the gallbladder wall and pericholecystic fluid concerning for acute cholecystitis. Patient was admitted for pain control, IV antibiotics and surgical intervention. Dr. Garcia performed a laparoscopic cholecystectomy with intraoperative cholangiogram on 11/26/23. Patient tolerated the procedure well. He had an uncomplicated hospitalization. Upon discharge, patient abdominal pain was controlled with Tylenol. He denies any nausea, vomiting, fever. Physical Exam GI GI Narrative: Abdomen- soft, nontender. Incisions c/d/i. No erythema or infection noted Weight / BMI Weight Weight: 185 lb 13.595 oz Body Mass Index (BMI) 29.9 ABG / Lab / Microbiology Data 11/27/23 06:49 11/26/23 05:46 Laboratory: Laboratory Results - last 24 hr 11/27/23 06:49: WBC 16.5 H, RBC 5.22, Hgb 15.2, Hct 45.9, MCV 87.9, MCH 29.1, MCHC 33.1, RDW Std Deviation 41.2, RDW Coeff of Wilman 12.7, Plt Count 252, MPV 9.0, Immature Gran % (Auto) 0.400, Neut % (Auto) 86.0 H, Lymph % (Auto) 6.7 L, [place] % (Auto) 6.7, Eos % (Auto) 0.0, Baso % (Auto) 0.2, Absolute Neuts (auto) 14.2 H, Absolute Lymphs (auto) 1.10, Nucleated RBC % 0 Radiography Diagnostic Testing: Radiology Impression Gallbladder Ultrasound 11/26/23 05:55 IMPRESSION: 1. Gallstones with thickening of the gallbladder wall and pericholecystic fluid concerning for acute cholecystitis. 2. Hepatomegaly and hepatic steatosis. Electronically Signed: Torsten Larkin MD at 9:42 EDT , Cholangiogram 11/26/23 15:15 IMPRESSION: 1. Staining of contrast in the RIGHT upper quadrant in the surgical field without clear demonstration of the intrahepatic or extrahepatic biliary tree. Electronically Signed: Murphy Bush MD at 1:06 EDT , D/C Instructions Discharge Diet: Light diet - advance as tolerated Discharge Activity: May Not Drive (3 days) Lifting Restrictions: No greater than 15 pounds x 2 weeks Call your doctor if your incision/area has: Continuous Slow Oozing, Sudden Increased Bleeding, Increased Pain/ Swelling, Increased Redness, Foul Smelling Discharge and Swelling at the incision site Call your doctor if you observe: Fever of 101 or Higher Suture Line Care: Avoid Pulling/Pushing and Avoid Pinching/Bending Remove Dressing in: 2 days Cleanse incision/area with: Soap & Water Additional Dressing/Incision Instructions: Remove steri-strips in 1 week Please Follow Up With: Herrera Garcia MD When: Please contact our office at [phone], option #2 to schedule a 10-14 day follow-up Meaningful Use Info Meaningful Use Meaningful Use Diagnoses (Choose all that apply): None applicable Ischemic Stroke Statin Dosing Therapy Reference: STATIN DOSE THERAPY REFERENCE: * Patients > 75 years receive moderate or high dose statin therapy. * Patients 75 years or YOUNGER should receive HIGH intensity statin dose unless contraindicated. You will be required to document reason for non-treatment if statin daily dose does not meet guidelines. HIGH DOSE STATIN THERAPY DAILY Atorvastatin > than or = to 40 mg Rosuvastatin > than or = to 20 mg Amlodipine + Atorvastatin > than or = to 2.5/40 mg Ezetimibe + Simvastatin 10/80 mg Simvastatin 80mg Discharge Plan Admission Admit Date/Time: 11/26/23 01:57 Primary Reason for Your Visit: acute cholecystitis Attending Provider: Herrera Garcia Primary Care Provider: Sonia Gonzales Instructions Additional Instructions / Restrictions: Cholecystectomy Diet ? Start light with soups and soft bland foods. You may advance diet as tolerated. Activity ? You may drive in 3 days but not while taking narcotic pain medication. ? I encourage walking. You may go up steps, one at a time. ? Do not swim or use hot tubs for 2 weeks. ? For comfort, you may use warm compresses or ice as needed for 15-20 minutes at a time. Lifting ? You may lift up to 15 pounds for 2 weeks. Dressings/Incision ? You may shower OVER your plastic dressings ? Do NOT tub bathe for 1 week ? Leave plastic dressings on for 2 days. ? When plastic dressings are removed, you will find steri strips. It is okay to continue showering with them in place, pat them dry. ? You may remove steri-strips after 1 week. We recommend getting them soaking wet for easier removal. Medications ? Anesthesia used during surgery and pain medications may cause constipation. I recommend initiating on the day of surgery a fiber supplement like, Metamucil, Citrucel, FiberCon, Benefiber, or a generic form of these medications. 1 heaping tablespoon in water daily. You may continue to utilize any bowel regimen or oral laxatives that you routinely take. ? As long as you are not intolerant to Tylenol, acetaminophen, ibuprofen, Motrin, Advil, Aleve, or similar medications, I would recommend transitioning to these [id number] medicines as soon as possible instead of continued use of narcotic pain medication. Follow up ? You should call [facility] soon after surgery, at [phone] option 2 to make a follow up appointment for 10-14 days after your surgery. Discharge Orders/Prescriptions Prescriptions: New acetaminophen 325 mg Tablet 650 mg PO Q4H PRN PRN (Reason: Pain 1-10 Or Fever) Qty: 0 0RF oxycodone 5 mg Tablet 5 mg PO Q6H PRN (Reason: pain) 2 Days Qty: 6 0RF Continued pantoprazole 40 mg tablet,delayed release (DR/EC) 40 mg PO DAILY Referrals / Follow Up: Sonia Gonzales, PA-C [Primary Care Provider] - Disposition Disposition (needs filled in before D/C Order can be placed): Home, Self Care Charges/Coding Visit Charges Inpatient E&M: 38729 Disch Hosp (no charge; post-op)
[2023-11-27] MEDS: Pantoprazole Sodium 40 MG Tablet PO (07:54)
[2023-11-27 08:31] LABS: ALB/GLOB Ratio 0.9 RATIO (0.9-2.4); AST(SGOT) 58 U/L (15-37); Alanine Aminotransfer ALT/SGPT 68 U/L (16-61); Albumin, Serum 3.1 g/dL (3.2-5.0); Alkaline Phosphatase 72 U/L (45-117); Anion Gap 7 (5-15); BUN 12 mg/dL (7-18); BUN/Creat Ratio 9.2 RATIO (10-20); Calcium,Total 8.8 mg/dL (8.5-10.1); Chloride 105 mmol/L (98-107); Creatinine, Serum 1.31 mg/dL (0.70-1.30); EST Glomerular Filtration Rate 61 mL/min (>60); Est Glom Filt Rate - Afr Amer 73 mL/min (>60); Estimated Creatinine Clearance 65.65 ml/min; Globulin 3.5 g/dL (2.2-4.2); Glucose 190 mg/dL (74-106); Potassium 3.8 mmol/L (3.5-5.1); Protein, Total 6.6 g/dL (6.4-8.2); Sodium Level 136 mmol/L (136-145)
[2023-11-27 09:58] VITALS: BP 137/76; PULSE 86; RESP 18; TEMP 36.8; O2SAT 97
== END 2023-11-27 11:12 | disposition home or self-care (01) ==
LOC: ED 11-26 01:46 → MS3 11-26 03:16
PROVIDERS: Physician Assistant; Admitting Provider Surgery; Emergency Provider Emergency Medicine; PCP Family Medicine; Visit Provider Surgery
PROC: (CPT 47610; principal; 2023-11-26 10:10)
DX: K80.12 Calculus of gallbladder with acute and chronic cholecystitis without obstruction (principal); K21.9 Gastro-esophageal reflux disease without esophagitis; Z79.899 Other long term (current) drug therapy
CPT/HCPCS: 47562; 00790; 36415; 74177; 74300; 76000; 76705; 80053; 81001; 83690; 85025; 88304; 93005; 96361; 96365; 96366; 96375; 96376; 99221; 99284; J7030; J7050; J7120; Q9967; A4216; G0378; J2405